=== PATIENT | male | born 1995 | race African-American/Black ===

== ENCOUNTER 2021-11-23 18:51 | Emergency (ER) | payer OTHER ==
[~2021-11-23] VITALS: Ht 170.2 cm; Wt 70.0 kg
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
[2021-11-23] MEDS ORDERED: ketorolac tromethamine 15mg/ml inj. IM ONE (21:05)
[2021-11-23] MEDS ORDERED: CYCL-1 PO (21:06)
[2021-11-23 21:26] VITALS: BP 140/98
== END 2021-11-23 21:27 | disposition home or self-care (01) ==
LOC: ER 18:52
DX: S20.20XA Contusion of thorax, unspecified, initial encounter (principal); M54.2 Cervicalgia; F12.10 Cannabis abuse, uncomplicated; V49.9XXA Car occupant (driver) (passenger) injured in unspecified traffic accident, initial encounter; Y93.89 Activity, other specified; Y92.89 Other specified places as the place of occurrence of the external cause; Y99.8 Other external cause status
CPT/HCPCS: 96372; 99283; J1885